=== PATIENT | female | born 1960 ===

== ENCOUNTER 2018-05-11 08:29 | Day surgery (SDC) | payer BC ==
[2018-05-11] MEDS ORDERED: Sodium Chloride 0.9% 1,000 ML IV SCH (10:00)
[2018-05-11] MEDS ORDERED: Propofol 10 mg/ml Inj (20 ML) ONE (10:21)
[2018-05-11 16:18] VITALS: RESP 18; TEMP 98.2
[2018-05-11 16:19] VITALS: O2SAT 98
[2018-05-11 16:24] VITALS: BP 175/90; PULSE 78
== END 2018-05-11 12:43 | disposition home or self-care (01) ==
LOC: ENDO 08:29
PROVIDERS: ATTEND Internal Medicine Gastroenterology
DX: K25.9 Gastric ulcer, unspecified as acute or chronic, without hemorrhage or perforation (principal); K20.9 Esophagitis, unspecified; K29.70 Gastritis, unspecified, without bleeding; D50.9 Iron deficiency anemia, unspecified; I10 Essential (primary) hypertension
CPT/HCPCS: 43239; 88305; 88342; J2001; J2704; J7030

== ENCOUNTER 2018-05-11 12:48 | Emergency (ER) | payer BC ==
[2018-05-11 12:56] VITALS: BMI 29.8
--- NOTE | 2018-05-11 13:46 | ED PDOC ---
Arrival/HPI - General Chief Complaint: High Blood Pressure Time Seen by Provider: 05/11/18 12:56 Historian: Patient - History of Present Illness Narrative History of Present Illness (Text): 05/11/18 13:46 A 57 year old female, whose past medical history includes hypertension, presents to the emergency department for elevated blood pressure. Patient reports blood pressure medications dosages have changed [address] Jack Leon (legal aid). States blood pressure measurement has been fluctuating since change in medications. In the past few days has been reading 140s/90s. Today, patient had an endoscopy performed for anemia, and during then blood pressure was elevated to 180s/90s. Patient sent to the ER to have hypertension monitored. Patient denies any fever, chills, cough, shortness of breath, chest pain, syn cope, abdominal pain, nausea, vomiting, diarrhea, headache, dizziness, neck pain/stiffness, or any other complaints at this time. Past Medical History - Provider Review Nursing Documentation Reviewed: Yes - Infectious Disease Hx of Infectious Diseases: None - Reproductive Menopause: Yes - Cardiac Hx Hypertension: Yes Hx Pacemaker: No - Neurological Hx Paralysis: No - Hematological/Oncological Hx Blood Transfusions: Yes (AFTER HYTERECTOMY) Hx Blood Transfusion Reaction: No - Musculoskeletal/Rheumatological Hx Musculoskeletal Disorders: No - Psychiatric Hx Emotional Abuse: No Hx Physical Abuse: No Hx Substance Use: No - Surgical History Hx Hysterectomy: Yes Other/Comment: buniomectomy - Anesthesia Hx Anesthesia Reactions: No - Suicidal Assessment Feels Threatened In Home Enviroment: No Family/Social History - Physician Review Nursing Documentation Reviewed: Yes Family/Social History: No Known Family HX Smoking Status: Never Smoked Hx Alcohol Use: Yes (SOCIAL) Hx Substance Use: No Allergies/Home Meds Allergies/Adverse Reactions: Allergies Penicillins Allergy (Verified 05/11/18 13:10) RASH shrimp Allergy (Verified 05/11/18 13:10) RASH Sulfa (Sulfonamide Antibiotics) Allergy (Verified 05/11/18 13:10) RASH Home Medications: Home Meds Medication Instructions Recorded Confirmed [place]-3 Fatty Acids/Fish Oil [Fish 1 each PO DAILY 05/06/18 05/11/18 Oil 1,000 mg Softgel] Erdarbi 40 mg PO DAILY 05/11/18 05/11/18 Review of Systems - Physician Review All systems were reviewed & negative as marked: Yes - Review of Systems Constitutional: absent: Fevers, Night Sweats Respiratory: absent: SOB Cardiovascular: absent: Chest Pain, Syncope Gastrointestinal: absent: Abdominal Pain, Diarrhea, Nausea, Vomiting Musculoskeletal: absent: Neck Pain (and no neck stiffness) Neurological: absent: Headache, Dizziness Physical Exam - Physical Exam Narrative Physical Exam (Text): PE: Gen: NAD, cooperative, well appearing, non-toxic. Head: NCAT. HEENT: EYES: PERRL, EOMI, conjunctiva clear, EARS: TMs clear MOUTH: moist MM, posterior pharynx without erythema or exudate, uvula midline. CV: (+) S1S2, RRR, no M/G/R LUNGS: CTA B/L, No W/R/R, good air movement Abd: Soft, NTTP, no guarding, rebound or rigidity. Neuro: AAO x 3, GCS 15, CN 2-12 intact, motor and sensory grossly intact, 5/5 muscle strength B/L UE's and LE's. ext: no cyanosis or edema Vital Signs Reviewed: Yes Vital Signs Temp Pulse Resp BP Pulse Ox 05/11/18 12:56 98.8 F 78 18 186/97 H 98 Temperature: Afebrile Blood Pressure: Hypertensive Pulse: Regular Respiratory Rate: Normal Appearance: Positive for: Well-Appearing, Non-Toxic, Comfortable Pain Distress: None Mental Status: Positive for: Alert and Oriented X 3 Medical Decision Making ED Course and Treatment: 05/11/18 13:50 Impression: 57 year old female here for monitoring of her hypertension. Plan: -- Reassess and disposition Prior Visits: Patient was last seen here in the emergency department on 11/11/19 18 for fall and right knee pain with generalized weakness. Progress Notes: EKG: Ordered, reviewed, and independently interpreted the EKG. Rate : 65 BPM Rhythm : NSR Interpretation : No ST-segment elevations or depressions, no T-wave inversions, normal intervals. Comparison : No previous EKG for comparison. 05/11/18 13:[address] Leon, who states to have a prescription of 25 mg Chlorthalidone (to be taken //Fri), and to have patient follow-up with him next week. 05/11/18 14:55 Patient was given dose of Chlorthalidone here in the ER. - Scribe Statement The provider has reviewed the documentation as recorded by the Karen Herrera Provider Scribe Attestation: All medical record entries made by the Scribe were at my direction and personally dictated by me. I have reviewed the chart and agree that the record accurately reflects my personal performance of the history, physical exam, medical decision making, and the department course for this patient. I have also personally directed, reviewed, and agree with the discharge instructions and dis position. Disposition/Present on Arrival - Present on Arrival Any Indicators Present on Arrival: No History of DVT/PE: No History of Uncontrolled Diabetes: No Urinary Catheter: No History of Decub. Ulcer: No History Surgical Site Infection Following: None - Disposition Have Diagnosis and Disposition been Completed?: Yes Diagnosis: Hypertension Disposition: HOME/ ROUTINE Disposition Time: 14:53 Patient Plan: Discharge Patient Problems: Current Active Problems Problem Status Onset Hypertension Acute Condition: STABLE Discharge Instructions (ExitCare): High Blood Pressure (DC) Additional Instructions: AKBAR WILLARD, thank you for letting us take care of you today. Your provider was Sameera Garnett MD and you were treated for hypertension. The emergency medical care you received today was directed at your acute symptoms. If you were prescribed any medication, please fill it and take as directed. It may take several days for your symptoms to resolve. Return to the Emergency Department if your symptoms worsen, do not improve, or if you have any other problems. Bring any paperwork you were given at discharge with you along with any medications you are taking to your follow up visit. Our treatment cannot replace ongoing medical care by a primary care provider outside of the emergency department. Thank you for allowing the [facility] team to be part of your care today. Prescriptions: Chlorthalidone [Hygroton] 12.5 mg PO MWF #30 tab Referrals: Jack Leon MD [Medical Doctor] - Follow up with primary Forms: [employer] (Turkmen) - Notes Notes (Text): 05/11/18 14:[address] Leon on 05/20/18 as previously scheduled.
[2018-05-11 15:18] VITALS: BP 170/69; PULSE 71; RESP 17; TEMP 98; O2SAT 95
--- NOTE | 2018-05-11 20:22 | CARD ---
APPROVED REPORT Date of service: 05/11/2018 EKG Measurement Heart [id number] <Conclusion> Normal sinus rhythm Nonspecific T wave abnormality Abnormal ECG
== END 2018-05-11 15:21 | disposition home or self-care (01) ==
LOC: ED 12:48
DX: I10 Essential (primary) hypertension (principal)